=== PATIENT | female | born 1935 | race Caucasian/White ===

== ENCOUNTER 2022-01-03 13:46 | Outpatient (CLI) | payer MEDICARE, MEDICAID ==
[~2022-01-03 13:46] MED LIST: ACET-75 PO; AMLO5TAB PO; ASPI-1265 PO; CHOL2000 PO; EYE SUPPLEMENT PO; HYDR25TA4 PO; IBUP-2697 PO; MULT-1141 PO; NAPR-1170 PO; NAS0.025NS BOTHNARES; OLME20TA74 PO; ROSU10TA2 PO
== END 2022-01-03 23:59 | disposition home or self-care (01) ==
LOC: RAD 13:46
PROVIDERS: ATTEND Otolaryngology
DX: R13.10 Dysphagia, unspecified (principal); K21.9 Gastro-esophageal reflux disease without esophagitis; R13.12 Dysphagia, oropharyngeal phase
CPT/HCPCS: 74230